=== PATIENT | female | born 1985 ===

== ENCOUNTER 2018-08-28 12:52 | Emergency (ER) | payer MEDICAID ==
[2018-08-28 13:02] VITALS: RESP 18; O2SAT 100
[2018-08-28] MEDS ORDERED: Iohexol 240 (50 ml) PO ONE (13:31)
[2018-08-28] MEDS ORDERED: Sodium Chloride 0.9% 1,000 ML IV STA (13:32)
[2018-08-28] MEDS ORDERED: Barium Sulfate Susp 2.1% w/v, 2.0% w/w 450 mL Bottle PO ONE ×4 (13:38→13:44)
[2018-08-28 13:59] LABS: BASO % 0.3 % (0.0-2.0); EOS % 0.2 % (0.0-4.0); HEMOGLOBIN 13.4 g/dL (12.0-16.0); LYMPH # 1.4 K/uL (1.0-4.3); LYMPH % 11.8 % (20.0-40.0); MEAN CELL VOLUME 95.3 fl (81.0-99.0); MEAN CORPUSCULAR HEMOGLOBIN 31.8 pg (27.0-31.0); MEAN CORPUSCULAR HGB CONC 33.3 g/dL (33.0-37.0); MEAN PLATELET VOLUME 8.5 fl (7.2-11.7); MONO # 0.7 K/uL (0.0-0.8); MONO % 5.7 % (0.0-10.0); NEUT # 9.8 K/uL (1.8-7.0); NRBC % 0.1 % (0.0-0.0); RBC 4.22 Mil/uL (3.80-5.20); RED CELL DISTRIBUTION WIDTH 13.4 % (11.5-14.5); WHITE BLOOD COUNT 11.9 K/uL (4.8-10.8)
[2018-08-28 14:00] LABS: SQUAMOUS EPITHIAL 3 /hpf (0-5); URINE BACTERIA RARE (<OCC); URINE BILIRUBIN NEGATIVE (NEGATIVE); URINE BLOOD MODERATE (NEGATIVE); URINE CLARITY SLIGHTY-CLOUDY (Clear); URINE COLOR YELLOW (YELLOW); URINE GLUCOSE (UA) NEG (NEGATIVE); URINE LEUKOCYTE ESTERASE NEG Leu/uL (Negative); URINE PROTEIN 30 mg/dL (NEGATIVE); URINE UROBILINOGEN 0.2-1.0 mg/dL (0.2-1.0)
--- NOTE | 2018-08-28 14:04 | ED PDOC ---
HPI: Abdomen Time Seen by Provider: 08/28/18 13:27 Chief Complaint (Nursing): Abdominal Pain Chief Complaint (Provider): Abdominal Pain, Dysuria History Per: Patient History/Exam Limitations: no limitations Onset/Duration Of Symptoms: Days (x5), Worse Since (waking up this morning) Current Symptoms Are (Timing): Still Present Additional Complaint(s): 32 year old female presents to the ED for evaluation of lower abdominal pain which radiates to her lumbar spine for the past five days associated with chills, subjective fever two days ago, nausea, vomiting and non-bloody diarrhea yesterday but not today, worsening this morning when the pain caused her to pass out while walking to the bathroom after getting up from bed. Patient notes that she cannot describe what it feels like, stating it is just "pain." Additionally, she is reporting dysuria for the past week, but denies any vaginal bleeding or discharge. LNMP: one year ago - patient notes she was seen by her obgyn who told her that she had colon inflammation, but she is unsure how this relates to her menstrual period and did not follow up again PMD: none provided Past Medical History Reviewed: Historical Data, Nursing Documentation, Vital Signs Vital Signs: Last Vital Signs Temp 97.6 F 08/28/18 12:56 Pulse 85 08/28/18 12:56 Resp 18 08/28/18 12:56 BP 112/68 08/28/18 12:56 Pulse Ox 100 08/28/18 12:56 - Medical History PMH: No Chronic Diseases - Surgical History Surgical History: No Surg Hx - Family History Family History: States: Unknown Family Hx - Social History Current smoker - smoking cessation education provided: No Alcohol: None Drugs: Denies - Home Medications Home Medications: Ambulatory Orders Medication Instructions Recorded Naproxen 500 mg PO Q12H PRN #30 tablet 08/28/18 - Allergies Allergies/Adverse Reactions: Allergies Allergy/AdvReac Type Severity Reaction Status Date / Time iodine Allergy RASH Verified 08/28/18 13:09 Review of Systems ROS Statement: Except As Marked, All Systems Reviewed And Found Negative Constitutional: Positive for: Fever (subjective), Chills Gastrointestinal: Positive for: Nausea, Vomiting, Abdominal Pain (lower which radiates to lumbar spine), Diarrhea (non-bloody) Genitourinary Female: Positive for: Dysuria. Negative for: Vaginal Discharge, Vaginal Bleeding Neurological: Positive for: Other (syncope) Physical Exam - Reviewed Nursing Documentation Reviewed: Yes Vital Signs Reviewed: Yes - Physical Exam Appears: Positive for: Non-toxic, Uncomfortable Head Exam: Positive for: ATRAUMATIC, NORMAL INSPECTION (no obvious signs of injury or bony deformity), NORMOCEPHALIC Skin: Positive for: Normal Color, Warm. Negative for: Rash Eye Exam: Positive for: Normal appearance ENT: Positive for: Normal ENT Inspection Neck: Positive for: Normal, Painless ROM, Supple Cardiovascular/Chest: Positive for: Regular Rate, Rhythm Respiratory: Positive for: Normal Breath Sounds. Negative for: Respiratory Distress Gastrointestinal/Abdominal: Positive for: Bowel Sounds (active, normal), Soft, Tenderness (diffuse, mostly to lower abdomen and pelvis), Guarding. Negative for: Distended (flat abdomen), Rebound Pelvic Exam: Positive for: Other (os closed; no cervical erythema; moderate amount of clear fluid in vault, but no other disscharge or blood noted; patient very tender on exam) Back: Positive for: Normal Inspection. Negative for: L CVA Tenderness, R CVA Tenderness, Vertebral Tenderness Extremity: Positive for: Normal ROM (all extremities) Neurological/Psych: Positive for: Awake, Alert, Oriented (x3). Negative for: Motor/Sensory Deficits - Laboratory Results Result Diagrams: 08/28/18 13:45 08/28/18 13:45 Urine POC: Negative - ECG O2 Sat by Pulse Oximetry: 100 (RA) Pulse Ox Interpretation: Normal Medical Decision Making Medical Decision Making: Time: 1329 Initial Impression: abdominal pain Initial Plan: --CT abd/pelvis with PO contrast of barium sulfate secondary to patient being allergic to iodine --CMP --Lipase chemistry --U-preg --CBC with differential --NS IV fluids --Toradol 15mg IVP --Zofran 4mg IVP --Urine culture --Urinalysis --US pelvis --Discussed with Dr. Lester who agrees with plan --Reevaluation 1555 Patient comfortable in bed with family member visiting. She states that her pain has improved. Pending US and CT results. 1557 US FINDINGS: UTERUS: Measures 9.8 x 4.4 x 5.8 cm. Normal in size and appearance. No fibroid or other mass lesion seen. ENDOMETRIUM: Measures 14 mm in diameter. The central endometrial echo complex is thickened and there is a 5 x 6 x 4 mm polypoid hyperechoic lesion in the endometrium without increased vascularity on color flow imaging. CERVIX: There are multiple nabothian cysts in the cervix, the largest measures 1.1 cm. RIGHT OVARY: Measures 4.5 x 2.8 x 4.3 cm. No solid mass. Normal flow. There is a 3.3 x 1.9 x 2.7 cm simple cyst. LEFT OVARY: Measures 2.5 x 2.1 x 2.4 cm. No solid mass. Normal flow. FREE FLUID: No significant free fluid noted. OTHER FINDINGS: None. IMPRESSION: 1. 5 x 6 x 4 mm polypoid lesion within the central endometrial echo complex without central flow on color Doppler imaging is nonspecific, endometrial polyp is a consideration. Clinical follow-up is advised. 2. 3.3 x 1.9 x 2.7 cm simple cyst in the right ovary. 3. Multiple nabothian cysts in the cervix, the largest measures 1.[address] abd/pelvis FINDINGS: LOWER THORAX: The visualized lungs are clear. LIVER: Normal in size with homogeneous enhancement. No gross lesion or ductal dilatation. GALLBLADDER AND BILE DUCTS: Well distended. No calcified gallstones, wall thickening or pericholecystic fluid. PANCREAS: Normal in size with homogeneous enhancement. No gross lesion or ductal dilatation. SPLEEN: Normal in size and appearance. ADRENALS: No discrete nodule. KIDNEYS AND URETERS: Normal in size with homogeneous enhancement. No hydronephrosis. No solid mass. VASCULATURE: No aortic aneurysm. There are no aortic atherosclerotic calcifications or mural plaque present. BOWEL: The small bowel loops are normal in caliber. The colon is grossly normal in appearance. No bowel wall thickening or obstruction. APPENDIX: Normal appendix. PERITONEUM: No free fluid. No free air. LYMPH NODES: No enlarged lymph nodes. BLADDER: Well distended and normal in appearance. REPRODUCTIVE: The uterus is normal in size. There is a 4.8 x 3.8 cm low-attenuation mass in the right posterior adnexa. BONES: No acute fracture. Within normal limits for the patient's age. OTHER FINDINGS: None. IMPRESSION: 4.8 x 3.8 cm complicated/hemorrhagic cyst in the right ovary. Please correlate with pelvic ultrasound. No acute abdominal abnormality. Specifically, no evidence for acute appendicitis [address] and US findings discussed with patient, will perform a pelvic examination which she is agreeable to. When asked, patient notes she is - both vaginal deliveries with no complications. 1713 At bedside with CHELA Noyola for pelvic exam. See physical exam for findings. Will consult Dr. Mueller. 1735 UA showed elevated RBCs and moderate blood, but no leuks or bacteria. WBC was e levated at 11.9, but H&H was within normal limits. Results discussed with patient. Discussed case with Dr. 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 Will provide patient with info for the women's health clinic and a script for Naproxen. All questions answered, return parameters discussed, and patient stable for discharge with verbalization of understanding and agreement of plan. Scribe Attestation: Documented by Nicole Anglin, acting as a scribe for Serina Rogers APN. Provider Scribe Attestation: All medical record entries made by the Scribe were at my direction and personally dictated by me. I have reviewed the chart and agree that the record accurately reflects my personal performance of the history, physical exam, medical decision making, and the department course for this patient. I have also personally directed, reviewed, and agree with the discharge instructions and disposition. Disposition - Clinical Impression Clinical Impression: Ovarian cyst - Patient ED Disposition Is Patient to be Admitted: No Counseled Patient/Family Regarding: Diagnosis, Need For Followup, Rx Given - Disposition Referrals: [facility] [Outside] Disposition: Routine/Home Disposition Time: 17:40 Condition: IMPROVED Prescriptions: Naproxen 500 mg PO Q12H PRN #30 tablet PRN Reason: Pain, Moderate (4-7) Instructions: Ovarian Cysts Forms: [employer] (Upper Sorbian) Print Language: MOLDOVAN - POA Present On Arrival: None
[2018-08-28 14:12] LABS: ALB/GLOB RATIO 1.3 (1.0-2.1); ALBUMIN 4.6 g/dL (3.5-5.0); ALT/SGPT 28 U/L (9-52); AST/SGOT 29 U/L (14-36); BLOOD UREA NITROGEN 16 mg/dl (7-17); CALCIUM 9.4 mg/dL (8.4-10.2); GFR NON-AFRICAN AMERICAN > 60; LIPASE 55 U/L (23-300)
--- NOTE | 2018-08-28 16:01 | US ---
Date of service: 08/28/2018 HISTORY: Pelvic pain COMPARISON: None available. TECHNIQUE: Transvaginal pelvic ultrasound was performed. FINDINGS: UTERUS: Measures 9.8 x 4.4 x 5.8 cm. Normal in size and appearance. No fibroid or other mass lesion seen. ENDOMETRIUM: Measures 14 mm in diameter. The central endometrial echo complex is thickened and there is a 5 x 6 x 4 mm polypoid hyperechoic lesion in the endometrium without increased vascularity on color flow imaging. CERVIX: There are multiple nabothian cysts in the cervix, the largest measures 1.1 cm. RIGHT OVARY: Measures 4.5 x 2.8 x 4.3 cm. No solid mass. Normal flow. There is a 3.3 x 1.9 x 2.7 cm simple cyst. LEFT OVARY: Measures 2.5 x 2.1 x 2.4 cm. No solid mass. Normal flow. FREE FLUID: No significant free fluid noted. OTHER FINDINGS: None. IMPRESSION: 1. 5 x 6 x 4 mm polypoid lesion within the central endometrial echo complex without central flow on color Doppler imaging is nonspecific, endometrial polyp is a consideration. Clinical follow-up is advised. 2. 3.3 x 1.9 x 2.7 cm simple cyst in the right ovary. 3. Multiple nabothian cysts in the cervix, the largest measures 1.1 cm.
--- NOTE | 2018-08-28 16:32 | CT ---
Date of service: 08/28/2018 PROCEDURE: CT Abdomen and Pelvis with contrast HISTORY: Abdominal pain COMPARISON: None available. TECHNIQUE: CT scan of the abdomen and pelvis was performed without administration of intravenous contrast. Oral contrast was administered. Coronal and sagittal reformatted images were obtained. Radiation dose: Total exam DLP = 609.62 mGy-cm. This CT exam was performed using one or more of the following dose reduction techniques: Automated exposure control, adjustment of the mA and/or kV according to patient size, and/or use of iterative reconstruction technique. FINDINGS: LOWER THORAX: The visualized lungs are clear. LIVER: Normal in size with homogeneous enhancement. No gross lesion or ductal dilatation. GALLBLADDER AND BILE DUCTS: Well distended. No calcified gallstones, wall thickening or pericholecystic fluid. PANCREAS: Normal in size with homogeneous enhancement. No gross lesion or ductal dilatation. SPLEEN: Normal in size and appearance. ADRENALS: No discrete nodule. KIDNEYS AND URETERS: Normal in size with homogeneous enhancement. No hydronephrosis. No solid mass. VASCULATURE: No aortic aneurysm. There are no aortic atherosclerotic calcifications or mural plaque present. BOWEL: The small bowel loops are normal in caliber. The colon is grossly normal in appearance. No bowel wall thickening or obstruction. APPENDIX: Normal appendix. PERITONEUM: No free fluid. No free air. LYMPH NODES: No enlarged lymph nodes. BLADDER: Well distended and normal in appearance. REPRODUCTIVE: The uterus is normal in size. There is a 4.8 x 3.8 cm low-attenuation mass in the right posterior adnexa. BONES: No acute fracture. Within normal limits for the patient's age. OTHER FINDINGS: None. IMPRESSION: 4.8 x 3.8 cm complicated/hemorrhagic cyst in the right ovary. Please correlate with pelvic ultrasound. No acute abdominal abnormality. Specifically, no evidence for acute appendicitis
[2018-08-28 17:56] VITALS: BP 104/73; PULSE 74; TEMP 98.1
== END 2018-08-28 17:41 | disposition home or self-care (01) ==
LOC: H.ER 12:52
DX: N83.201 Unspecified ovarian cyst, right side (principal)
CPT/HCPCS: 74176; 76830; 80053; 81003; 81025; 83690; 85025; 87086; 96361; 96374; 96375; 99284; J1885; J2405; J7030